=== PATIENT | male | born 1985 | race Caucasian/White ===

== ENCOUNTER 2020-10-26 08:59 | Outpatient (REF) | payer BC, SELFPAY ==
[2020-10-26 11:27] LABS: Alanine Aminotransferase 30 U/L (0-40); Albumin Level 4.5 g/dL (3.5-5.0); Alkaline Phosphatase 52 U/L (39-117); Anion Gap 12 (12-20); Aspartate Amino Transferase 27 U/L (5-37); Bilirubin Total 0.7 mg/dL (0.0-1.0); Blood Urea Nitrogen 11 mg/dL (9-16); Calcium 9.4 mg/dL (8.4-10.2); Carbon Dioxide 28 mmol/L (22-29); Chloride 102 mmol/L (96-108); Cholesterol 181 mg/dL; Estimated Glomerular Filt Rate > 60; Glucose Fasting 105 mg/dL (60-99); HDL Cholesterol 38 mg/dL; Potassium 4.3 mmol/L (3.3-5.1); Sodium 138 mmol/L (135-145); Total Protein 7.3 g/dL (6.5-8.0); Triglycerides 469 mg/dL
[2020-10-26 11:45] LABS: HBS Num1 > 1000.00 mIU/mL (0-7.99); HBsAGNum1 0.37 S/CO (0.00-0.99); Hepatitis B Surface Antigen Negative (Negative); ~Hepatitis B Surface Antibody REACTIVE (Nonreactive)
[2020-10-26 11:50] LABS: TSH reflex Free T4 1.76 uIU/mL (0.32-4.0)
[2020-10-26 12:00] LABS: HBc Num1 0.08 S/CO (0.00-0.79); HIV AB/AG Nonreactive (Nonreactive); HIV Num 1 0.07 S/CO (0.00-0.99); Hepatitis B Core Antibody Nonreactive (Nonreactive); ~HepC Num1 0.09 S/CO (0.00-0.79); ~Hepatitis C Antibody Nonreactive (Nonreactive)
[2020-10-26 12:47] LABS: CT PCR NOT DETECTED (Not Detect.); NG PCR NOT DETECTED (Not Detect.)
[2020-10-27 08:22] LABS: Syphilis Screen Nonreactive (Nonreactive)
== END 2020-10-26 09:00 | disposition home or self-care (01) ==
LOC: HO.WFDLDS 08:59
PROVIDERS: Visit Provider Family Medicine
DX: Z11.3 Encounter for screening for infections with a predominantly sexual mode of transmission (principal); Z00.00 Encounter for general adult medical examination without abnormal findings
CPT/HCPCS: 80053; 80061; 84443; 86704; 86706; 86780; 86803; 87340; 87389; 87491; 87591

== ENCOUNTER 2023-12-18 14:56 | Outpatient (AMB) | payer OTHER, SELFPAY ==
[2023-12-18 15:00] VITALS: BP 130/72; PULSE 85; O2SAT 98; BMI 30.2
--- NOTE | 2023-12-18 15:00 | A.OFFPC_ITS ---
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 ?? Prior PCP:? Last office visit/CPE:? Acute issue(s):? ?? PMHx:? Hx Lyme disease as a child w/ septic knee. Treated and resolved. , Depression/Anxiety SurgHx:?None FHx:? SocHx: Smokes 1/2 ppd, EtOH 2 beers 2 x a week. No current drugs PFSH Medical History (Updated 12/18/23 @ 15:36 by Sonu Martinez) ADHD Lyme disease Surgical History (Updated 12/18/23 @ 15:08 by Mercedez Hardy CMA) No pertinent past surgical history Family History (Updated 12/18/23 @ 15:09 by Mercedez Hardy CMA) Mother Acute Crohn's disease Social History (Updated 12/18/23 @ 15:13 by Mercedez Hardy CMA) Household Members: Family Both parents involved: Yes Caregiver staying overnight: No Housing: House Are you a primary care management specialist to a significant other at home: No Do you presently have visiting nurse or other home services: No 75 years or older and lives alone: No Alcohol intake: current Patient Tobacco Use Status: Current everyday Tobacco user Cigarette Packs Per Day: 0.5 e-Cigarette/Vaping Use: Never Used Use of substances other than those prescribed or required for medical reasons: No Have you been hit, kicked, punched, or otherwise hurt by someone within the past year? If so, by whom?: No Do you feel safe in your current relationship?: No Current Relationship Is there a partner from a previous relationship who is making you feel unsafe now?: No Are you made to feel afraid or neglected: No Special reji needs: No Agree to transfusion: Yes Are you DNR?: No Advance Directives: No Advance Directives Information Provided: No Advance Directives on File: No Healthcare Proxy: No service: No Current occupational status: employed Current occupation: [employer] Cognitive needs: No Hearing needs: No Vision needs: No Questionnaire PHQ-9 Over the last 2 weeks, how often have you been bothered by any of the following problems? 1. Little interest or pleasure in doing things: nearly every day 2. Feeling down, depressed, or hopeless: more than half the days 3. Trouble falling or staying asleep, or sleeping too much: nearly every day 4. Feeling tired or having little energy: nearly every day 5. Poor appetite or overeating: several days 6. Feeling bad about yourself - or that you are a failure or have let yourself or your family down: several days 7. Trouble concentrating on things, such as reading the newspaper or watching television: nearly every day 8. Moving or speaking so slowly that other people could have noticed. Or the opposite - being so fidgety or restless that you have been moving around a lot more than usual: not at all 9. Thoughts that you would be better off or of hurting yourself in some way: not at all Total score: 16 Depression Screening Interpretation: Positive Depression Screening Done: Yes 65631 - PHQ-9 Billing: Yes Source: Developed by Drs. Yinka Ramirez, Sonia Craig, Herberth Johnson and colleagues, with an educational lorenzo from [employer]. Thrive Questionnaire Date Thrive assessed: 12/18/23 I am a: Patient What is your living situation today?: I have a steady place to live Within the past 12 months, did the food you bought not last and you didn't have the money to get more?: Never true Within the past 12 months, did you worry whether your food would run out before you got money to buy more?: Never true Do you have trouble paying for medicines?: No Do you have trouble getting transportation to medical appointments?: No Do you have trouble paying your heating and electricity bill?: No Do you have trouble taking care of your child, family member or friend?: No Do you have trouble with day-to-day activities such as bathing, preparing meals, shopping, managing finances, etc.?: No Are you currently unemployed and looking for a job?: No Are you interested in more education?: No THRIVE Score: 0 AURA-7 AMB Questionnaire AURA-7 Date AURA - 7 assessed: 12/18/23 Feeling nervous, anxious, or on edge: 3 = Nearly every day Not being able to stop or control worryin = More than half the days Worrying too much about different things: 2 = More than half the days Trouble relaxin = More than half the days Being so restless that it is hard to sit still: 3 = Nearly every day Becoming easily annoyed or irritable: 1 = Several days Feeling afraid as if something awful might happen: 0 = Not at all Total AURA-7 score (0-4 normal; 5-9 mild; 10-14 moderate; 15-21 severe): 13 Source: Developed by Drs. Yinka Ramirez, Sonia Craig, Herberth Johnson and colleagues, with an educational lorenzo from [employer]. AURA-7 Assessment Billing AURA-7 Assessment Tool: AURA-7 Assessment 15253 Review of Systems Const Denies chills, Denies fatigue, Denies fever(s), Denies headache(s) and Denies weakness ENT Denies dizziness and Denies headache(s) Card Denies chest pain, Denies lightheadedness, Denies dyspnea and Denies other (Palpitations) Resp Denies cough, Denies dyspnea, Denies wheezing and Denies other ( shortness of breath) Musc Denies numbness and Denies tingling Neuro Denies dizziness, Denies headache(s), Denies numbness, Denies tingling, Denies paresthesias and Denies weakness Psych Denies anxiety and Denies depression Endo Denies fatigue Aller/Immun Denies wheezing Physical exam (Primary Care) Vital Signs: Last Vital Signs Pulse 85 12/18/23 15:00 BP 130/72 12/18/23 15:00 Pulse Ox 98 12/18/23 15:00 BMI result Body Mass Index 30.2 Tobacco/Smoking Status: Tobacco use Status Tobacco use date assessed 12/18/23 12/18/23 15:12 Patient Tobacco Use Status Current everyday Tobacco 12/18/23 15:12 e-Cigarette/Vaping Use Never Used 12/18/23 15:13 PHQ-9: PHQ-9 Score PHQ-9: Total score 16 12/18/23 15:18 Depression Screening Interpretation: Positive Thrive Assessment: Date of Thrive Assessment Date Thrive assessed 12/18/23 12/18/23 15:17 Const General: no acute distress and well developed Nutritional Appearance: well nourished Orientation/consciousness: patient oriented x3 HENMT Head: Yes normocephalic and Yes atraumatic Eyes General: appearance normal, both eyes and all related structures Pupils: Equal, round and reactive pupils present EOM: EOMs intact bilaterally Resp Effort & Inspection: normal respiratory effort Auscultation: clear to auscultation bilaterally Cardio Rate: regular rate Rhythm: regular rhythm Heart sounds: S1 normal heart sound present, S2 normal heart sound present, no gallops, no murmurs and no rubs Neuro General: patient oriented x3 and gait normal Cranial nerves: Yes Equal, round and reactive pupils present Psych Affect: normal affect Assessment and Plan Assessment & Plan (1) Depression with anxiety: Code(s): F41.8 - Other specified anxiety disorders Plan: Significant?anxiety?and?depression?which?patient?acknowledges. Starting?bupropion?as?he?also?notes?difficulty?con centrating?and?also?is?smoking?half?pack?of?cigarettes?per?day Denies?any?history?of?bipolar?disorder?or?family?history?of?this. (2) Difficulty concentrating: Code(s): R41.840 - Attention and concentration deficit Plan: No?documented?history?of?ADHD?though?patient?says?he?has?a?history?of ?this?as?a?child?and?says?that?he?was?taking?Ritalin.??I?do?not?have?documentati on?of?this. Will?refer?to?neuropsychiatry?for?evaluation Meantime,?we?can?use?bupropion Patient?also?notes?that?he?had?been?given?clonidine?in?the?past (3) History of Lyme disease: Code(s): Z86.19 - Personal history of other infectious and parasitic diseases Plan: Treated?and?resolved (4) Laboratory exam ordered as part of routine general medical examination: Code(s): Z00.00 - Encounter for general adult medical examination without abnormal findings Plan: Check?lab Orders: Orders Microalbumin, Random (w Creat) Today I10 - Essential (primary) hypertension Comprehensive Harrod. Panel Fast Today Z00.00 - Encounter for general adult medical examination without abnormal findings Complete Blood Count Auto Diff Today Z00.00 - Encounter for general adult medical examination without abnormal findings Lipid Panel Today Z00.00 - Encounter for general adult medical examination without abnormal findings UA and rflx microscopic Today Z00.00 - Encounter for general adult medical examination without abnormal findings TSH reflex Free T4 Today Z00.00 - Encounter for general adult medical examination without abnormal findings Drug Screen Urine Today F41.8 - Other specified anxiety disorders Referrals 2 Neuropsychiatry Referral R41.840 - Attention and concentration deficit Medications: New bupropion HCl 75 mg in morning and 75mg before dinner 75 mg PO BID 30 days 60 tabs 1RF Coding Level of Care Code New Pt Level 3 (55473) Diagnoses Depression with anxiety F41.8 Difficulty concentrating R41.840 History of Lyme disease Z86.19 Laboratory exam ordered as part of routine general medical examination Z00.00 Additional Codes AURA-7 Assessment Billing - AURA-7 Assessment Tool: AURA-7 Assessment 76260 ([id number])
== END 2023-12-18 15:57 | disposition home or self-care (01) ==
PROVIDERS: PCP Family Medicine; Visit Provider Family Medicine
DX: F41.8 Other specified anxiety disorders (principal); R41.840 Attention and concentration deficit; Z86.19 Personal history of other infectious and parasitic diseases
CPT/HCPCS: 96127; 99214

== ENCOUNTER 2024-04-04 13:35 | Outpatient (AMB) | payer OTHER, SELFPAY ==
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
[2024-04-04 13:41] VITALS: BP 124/82; PULSE 67; RESP 16; TEMP 36.4; O2SAT 95; BMI 31.9
== END 2024-04-04 14:01 | disposition home or self-care (01) ==
PROVIDERS: PCP Family Medicine; Visit Provider Nurse Practitioner Family
DX: S06.0X0A Concussion without loss of consciousness, initial encounter (principal); V89.2XXA Person injured in unspecified motor-vehicle accident, traffic, initial encounter; Z04.3 Encounter for examination and observation following other accident

== ENCOUNTER → 2024-04-04 13:35 | Outpatient (BNVA) | payer OTHER, SELFPAY | PROVIDERS: PCP Family Medicine | DX: S06.0XAD Concussion with loss of consciousness status unknown, subsequent encounter (principal); V89.2XXD Person injured in unspecified motor-vehicle accident, traffic, subsequent encounter | CPT/HCPCS: 99212 ==

== ENCOUNTER 2024-06-07 09:42 | Emergency (ER) | payer OTHER, SELFPAY ==
--- NOTE | 2024-06-07 10:05 | PC.RT ---
Pt biba, CPR in progress. pt being bag valve ventilated by EMS. Pt transferred to ER bed, RT took over bagging. ACLS care continued. Pt suctioned w/ yankauer, had copious amounts of brown, food chunked vomitus coming out of mouth uncontrollably. Intubation attempts x2. successful intubation on second attempt w/ 7.5 ETT. Pt has vomitus and aguila blood spewing up through ETT and from mouth, RTs deep suctioned w/ andrea. Intubation confirmed w/ colormetric monitoring. ETCO2 monitoring unsuccessful due to copious amounts of vomit in tube. RTs continued to suction and bag ventilate pt while ACLS care was provided by MD and staff home therapy rn. TOD called. ETT remained in pt.
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
--- NOTE | 2024-06-07 10:14 | MHC.EDTECH ---
CALLED ME OFFICE AT 10:10 PER 'S REQUEST. SPOKE TO
[2024-06-07 10:18] LABS: Glucose, Whole Blood 286 mg/dL (60-115)
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
[2024-06-07 10:41] VITALS: BMI 34.7
--- NOTE | 2024-06-07 10:41 | PC.NURSE ---
called [facility] at 10:26 and spoke with Alise. awaiting call back at this time.
--- NOTE | 2024-06-07 10:49 | PC.NURSE ---
call back received from [facility], spoke with Perez. [facility] will accept the case at this time. CASE #[id number]
--- NOTE | 2024-06-07 11:45 | PC.NURSE ---
attempted to call pts mother, reviewed phone number for brother and voicemail reveals the number does not belong to the brother. no other phone number listed for pt family
--- NOTE | 2024-06-07 13:41 | PC.NURSE ---
pt brought down to [facility] at 1300
== END 2024-06-07 13:00 | disposition expired ==
LOC: HO.ED 10:32
PROVIDERS: Emergency Provider Emergency Medicine
DX: I46.9 Cardiac arrest, cause unspecified (principal)
CPT/HCPCS: 82947; 99282; 99284; J0171